=== PATIENT | male | born 1950 | race Caucasian/White ===

== ENCOUNTER 2018-10-29 22:45 | Emergency (ER) | payer OTHER, MEDICARE ==
[2018-10-29 23:02] VITALS: BP 171/87; PULSE 81; TEMP 99.8; BMI 29.9
--- NOTE | 2018-10-30 00:10 | PDOC ---
History of Present Illness - General Chief Complaint: Cold Symptoms Stated Complaint: FEVER/CHILLS/BODY ACHES Time Seen by Provider: 10/29/18 22:59 - History of Present Illness Initial Comments: This 68-year-old man with a history of hypertension/hyperlipidemia presents with several hour history of fever/chills/muscle aches. Patient states that he had feeling of malaise earlier in the day; when he returned home from his work this evening, he had shaking chills and fever was measured at 101F. He also noted pain in the muscle on the left side of his neck extending into his scalp and moderate frontal headache. He took Tylenol for his fever a few hours prior to presenting to the emergency room. He denies stiff neck, upper respiratory symptoms, cough, abdominal pain, vomiting or diarrhea, rash. No recent travel. No known sick contacts. 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 Patient has no history of tick borne illnesses and no recent tick bite. Past History - Past Medical History Allergies/Adverse Reactions: Allergies Allergy/AdvReac Type Severity Reaction Status Date / Time No Known Allergies Allergy Unverified 10/29/18 22:46 Home Medications: Ambulatory Orders Amlodipine Besylate 10/29/18 Atorvastatin Ca 10/29/18 Esomeprazole Sodium 10/29/18 Irbesartan 10/29/18 Levothyroxine 10/29/18 Metoprolol Succinate 10/29/18 COPD: No HTN: Yes Hypercholesterolemia: Yes - Suicide/Smoking/Psychosocial Hx Smoking History: Never smoked Review of Systems - Review of Systems Able to Perform ROS?: Yes Comments:: 12 point review of systems is negative except for what is noted in the history of present illness *Physical Exam - Vital Signs Last Vital Signs Temp Pulse Resp BP Pulse Ox 99.8 F H 81 16 171/87 H 97 10/29/18 22:48 10/29/18 22:48 10/29/18 22:48 10/29/18 22:48 10/29/18 22:48 - Physical Exam Comments: GENERAL: Adult male, alert and oriented 3, no acute distress; oral temperature 99.8F HEAD: Normal with no signs of trauma. EYES: PERRLA, EOMI, sclera anicteric, conjunctiva clear. ENT: Ears normal, nares patent, oropharynx clear without exudates. Dry mucous membranes. NECK: Normal range of motion, supple without lymphadenopathy, JVD, or masses. Mild tenderness of left paraspinal cervical muscles. No meningismus LUNGS: Breath sounds equal, clear to auscultation bilaterally. No wheezes, and no crackles. HEART:Regular rate and rhythm, normal S1 and S2 without murmur, rub or gallop. ABDOMEN:.normal bowel sounds No guarding,tenderness or rebound.No masses No distention. EXTREMITIES: Normal range of motion, no edema. No clubbing or cyanosis. No erythema, or tenderness. NEUROLOGICAL: Cranial nerves II through XII grossly intact. Normal speech. No focal neurological deficits. MUSCULOSKELETAL: Back non-tender to palpation, no CVA tenderness SKIN: Warm, Dry, normal turgor, no rashes or lesions noted. Medical Decision Making - Medical Decision Making 68-year-old man presents with 1 day history of malaise followed by myalgias ( left side of cervical paraspinal muscles) and fever. No other symptoms present. Exam as noted. Clinical presentation consistent with viral syndrome; it was explained to the patient that most viral illnesses are not treated with antimicrobial medications. Treatment is supportive with rest, fluids and anti-inflammatory meds used as needed. Since [place] a endemic area for tickborne illnesses, he is cautioned to return to ER or see his doctor if he has development of a rash. Also, he should return to the ER if he develops severe headache/to stiff neck/persistent high fever/abdominal pain or vomiting *DC/Admit/Observation/Transfer Diagnosis at time of Disposition: Viral syndrome - Discharge Dispostion Disposition: HOME Condition at time of disposition: Stable - Referrals - Patient Instructions Printed Discharge Instructions: DI for Viral Syndrome Additional Instructions: Rest; drink plenty of fluids Alternate acetaminophen with ibuprofen/naproxen as needed for fever and body aches Return to ER if you have cough/shortness of breath/abdominal pain/stiff neck/ persistent fever greater than 102.5 Return to ER or see your doctor if you develop rash In any case, follow-up with your doctor within the next week - Post Discharge Activity
== END 2018-10-30 00:16 | disposition home or self-care (01) ==
LOC: FER 22:45
DX: B34.9 Viral infection, unspecified (principal)
CPT/HCPCS: 99281-25